=== PATIENT | male | born 1970 | race Caucasian/White ===

== ENCOUNTER → 2017-02-22 | Outpatient (CLI) | payer OTHER ==
[~2017-02-22] MED LIST: APIX5TAB PO; HYDR-3580 PO; METO1TAB9 PO; MULT1TAB46 PO; MULT400T PO; [UNRECOGNIZED DRUG - CODE] EACH NARE
[2017-02-22 11:34] LABS: BILIRUBIN, URINE NEG (NEG); BLOOD, URINE NEG (NEG); GLUCOSE,URINE NEG (NEG); KETONE, URINE NEG (NEG); NITRITE,URINE NEG (NEG); SQUAMOUS EPITHELIAL CELL URINE <1 /hpf (0-5); URINE COLOR YELLOW (YELLW/STRAW); URINE LEUKOCYTE ESTERASE NEG (NEG)
[2017-02-22 11:39] LABS: AUTOMATED NEUTROPHIL # 3.7 TH/MM3 (1.8-7.7); BASOPHIL % 0.7 % (0.0-2.0); EOSINOPHIL # 0.5 TH/MM3 (0-0.4); EOSINOPHIL % 7.6 % (0.0-4.0); HEMATOCRIT 43.4 % (39.0-51.0); HEMOGLOBIN 14.8 GM/DL (13.0-17.0); LYMPHOCYTE # 1.4 TH/MM3 (1.0-4.8); MEAN CELL VOLUME 86.8 FL (80.0-100.0); MEAN CORPUSCULAR HEMOGLOBIN 29.7 PG (27.0-34.0); MEAN CORPUSCULAR HGB CONC 34.2 % (32.0-36.0); MEAN PLATELET VOLUME 9.6 FL (7.0-11.0); MONO % 8.6 % (0.0-8.0); MONOCYTE # 0.5 TH/MM3 (0-0.9); NEUT % 60.1 % (16.0-70.0); PLATELET COUNT 155 TH/MM3 (150-450); RED CELL DISTRIBUTION WIDTH 13.5 % (11.6-17.2); WHITE BLOOD COUNT 6.2 TH/MM3 (4.0-11.0)
--- NOTE | 2017-02-22 21:04 | EKG ---
Date Performed: 02/22/2017 Time Performed: 10:41:31 PTAGE: 46 years EKG: SINUS BRADYCARDIA INCOMPLETE RIGHT BUNDLE BRANCH BLOCK BORDERLINE ECG NO PREVIOUS TRACING DOCTOR: Patsy Woody Interpretating Date/Time 02/22/2017 21:03:34
== END ==
LOC: CPRE 09:54
PROVIDERS: ATTEND Orthopaedic Surgery Orthopaedic Surgery of the Spine
DX: Z01.810 Encounter for preprocedural cardiovascular examination (principal); Z01.812 Encounter for preprocedural laboratory examination; M50.320 Other cervical disc degeneration, mid-cervical region, unspecified level; M50.33 Other cervical disc degeneration, cervicothoracic region; R94.31 Abnormal electrocardiogram [ECG] [EKG]
CPT/HCPCS: 36415; 81001; 85025; 93005

== ENCOUNTER 2017-03-02 05:42 | Inpatient (IN) | payer OTHER ==
[~2017-03-02] VITALS: Ht 170.2 cm; Wt 88.0 kg
[~2017-03-02 05:42] MED LIST changes: -HYDR-3580 PO; -METO1TAB9 PO; +METO50TA11 PO
[2017-03-02] MEDS ORDERED: ceFAZolin 2 GM PREMIX 50 ML IV SCH (06:30)
[2017-03-02] MEDS ORDERED: SODIUM CHLORID 0.9% 500 ML IV PRN (06:30)
[2017-03-02] MEDS ORDERED: LACTATED RINGER'S 1000 ML IV PRN (06:30)
[2017-03-02] MEDS ORDERED: POVIDONE IODINE 5% (ANTISEPSIS KIT) 4 APPLICATIONS EACH NARE PRN (06:30)
[2017-03-02] MEDS ORDERED: POVIDONE IODINE 7.5% SCRUB 118 ML BOTTLE TOPICAL SCH (06:30)
[2017-03-02] MEDS ORDERED: INSULIN HUMAN REGULAR 1,000 UNITS/10 ML VIAL SQ PRN (06:30)
[2017-03-02] MEDS ORDERED: VANCOMYCIN 1000 MG/NS 250 ML (for <70 kg) IV SCH ×2 (06:30)
[2017-03-02] MEDS ORDERED: CHLORHEXIDINE GLUCONATE 2 % 1 PACK (2 CLOTHS) TOPICAL PRN (06:30)
[2017-03-02] MEDS ORDERED: METOPROLOL TARTRATE 25 MG TAB PO PRN (06:30)
[2017-03-02] MEDS ORDERED: BUPIVACAINE/EPINEPHRINE 0.5% 50 ML VIAL ONE (07:29)
[2017-03-02] MEDS ORDERED: GENTAMICIN SULFATE 80 MG/2 ML VIAL ONE (07:29)
[2017-03-02] MEDS ORDERED: ACETAMINOPHEN 1000 MG/100 ML 100 ML IV ONE (07:34)
[2017-03-02] MEDS ORDERED: PROPOFOL 500 MG/50 ML INJ 0 ML ONE (07:45)
[2017-03-02] MEDS ORDERED: PROPOFOL 500 MG/50 ML INJ 50 ML ONE ×3 (10:07→11:19)
[2017-03-02] MEDS ORDERED: PROPOFOL 200 MG/20 ML AMP ONE (10:36)
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
[2017-03-02] MEDS: LACTATED RINGER'S 1000 ML INJ 1,000 ML IV SCH ×2 (10:50→17:31)
[2017-03-02] MEDS ORDERED: HYDR-3580 PO (10:55)
[2017-03-02] MEDS ORDERED: SODIUM CHLORIDE 0.9% FLUSH 5 ML FLUSH IVF PRN (11:00)
[2017-03-02] MEDS ORDERED: MORPHINE SULFATE 4 MG/ML INJ IV PUSH PRN (11:00)
[2017-03-02] MEDS ORDERED: OXYMETAZOLINE HCL 0.05% 15 ML NASAL SPRAY EACH NARE PRN (11:00)
[2017-03-02] MEDS ORDERED: ONDANSETRON HCL 4 MG/2 ML VIAL IV PUSH PRN (11:00)
[2017-03-02] MEDS ORDERED: ACETAMINOPHEN/HYDROcodone 325 MG/7.5 MG TAB PO PRN (11:00)
[2017-03-02] MEDS ORDERED: BISACODYL 10 MG SUPP RECTAL PRN (12:00)
[2017-03-02] MEDS ORDERED: Post-op Orders (for Pharmacy) MISC XX ONE (12:15)
[2017-03-02] MEDS ORDERED: DO NOT ADM ANY ANTICOAGULANT DRUGS PRN (12:16)
[2017-03-02] MEDS ORDERED: *morphine SULFATE 8 MG/ML PERIprocedure ONLY ONE (12:46)
--- NOTE | 2017-03-02 13:14 | MP ---
cc: IZABEL SOLIS MD, ALBERT W. M.D. BOGDANOWICZ, BRIAN T. MD DATE OF SURGERY 03/02/2017 PREOPERATIVE DIAGNOSES 1. C5-6 herniated nucleus pulposus, osteophyte disk complex. 2. Cervical spine degenerative disc disease, osteoarthritis. 3. Right-sided cervical radiculitis with right upper extremity weakness. POSTOPERATIVE DIAGNOSES 1. C5-6 herniated nucleus pulposus, osteophyte disk complex. 2. Cervical spine degenerative disc disease, osteoarthritis. 3. Right-sided cervical radiculitis with right upper extremity weakness. PROCEDURE C5-6 anterior interbody fusion; C5-6 SpineNet ACC anterior cervical cage; C5-6 SpineNet Rauscher anterior spinal instrumentation. SURGEON Key Mayo MD PROMOTIONS INTERN Dayna Doll PA-C COMPLICATIONS None. ANESTHESIA General. DRAINS None. SPECIMEN None. CONDITION Stable. PLAN OF ACTIVITY As per orders. PROCEDURE Dr. Varun Mayo and myself were co-surgeons today. Dr. Varun Mayo performed the neurosurgical decompression portion of the procedure. Under the operating microscope he performed C5-6 anterior cervical discectomy, anterior decompression with foraminotomy, also right anterior iliac crest bone grafting. I was not present for his portion of the procedure. I performed the orthopedic spinal fusion and stabilization portion of the procedure which is well described in my operative note. My nurse assistant, Dayna Doll PA-C, was present for my portion of the surgical case. She was medically necessary for the entire case because of the complexity of the case and to facilitate the performance of the procedure. The SHUFFLE BOARD OPERATOR at the back table was not of the skill-set for this case to manipulate the instruments, e.g., the multiple different types of soft tissue retractors, trial implants and permanent implants. The patient was brought into the operating room and had satisfactory general endotracheal anesthesia by the Department of Anesthesia. Dr. Varun Mayo performed a left anterior exposure and he performed the C5-6 anterior cervical discectomy using the operating microscope and anterior decompression and also right anterior iliac crest bone grafting. I was not present for his portion of the procedure. This is well described in his operative note. The endplates at C5-6 were prepared for fusion. The hyaline cartilage endplate was removed with multiple angled curettes and burs. A 6, 10 x 12 SpineNet ACC cage was placed in the interspace. The anterior iliac crest bone graft was used under fluoroscopic guidance for interbody fusion. Anterior osteophytes were removed using multiple different types of rongeurs and the barrel bur. A 23-mm length SpineNet Rauscher plate was contoured to appropriate dimensions for the appropriate cervical lordosis. Two tack pins were used to fixate the plate at the appropriate level; this was done under fluoroscopic guidance at the AP and lateral level. Two screws were used in the vertebral body of C5 and C6. Each of the screws were 14-mm length, 4.0 mm in diameter, fixed angle screws. Each of the screws were drilled. The screws wee inserted. Each screw was appropriately locked to the plate. The tack pins were removed. Intraoperative fluoroscopy in the AP and lateral planes confirmed satisfactory position of the bone graft at C5-6 and satisfactory position of the SpineNet ACC cage at C5-6 and satisfactory position of the anterior spinal instrumentation at C5-6. The wound was irrigated with copious amounts of sterile saline antibiotic solution. The wound itself was dry. The wound was closed in routine layers. This was done with multiple 3-0 Vicryl sutures. The skin was approximated with running subcuticular 4-0 Vicryl, Dermabond placed over the incision and sterile dressing applied, the patient placed in [place] cervical orthosis. The patient tolerated the procedure well and arrived in the recovery room in stable and satisfactory condition. MD FARHEEN Rahman/SSB /11:48 AM /12:57 PM
--- NOTE | 2017-03-02 13:14 | MP ---
cc: IZABEL SOLIS MD, ALBERT W. M.D. BOGDANOWICZ, BRIAN T. MD DATE OF SURGERY 03/02/2017 PREOPERATIVE DIAGNOSES 1. C5-6 herniated nucleus pulposus, osteophyte disk complex. 2. Cervical spine degenerative disc disease, osteoarthritis. 3. Right-sided cervical radiculitis with right upper extremity weakness. POSTOPERATIVE DIAGNOSES 1. C5-6 herniated nucleus pulposus, osteophyte disk complex. 2. Cervical spine degenerative disc disease, osteoarthritis. 3. Right-sided cervical radiculitis with right upper extremity weakness. PROCEDURE C5-6 anterior interbody fusion; C5-6 SpineNet ACC anterior cervical cage; C5-6 SpineNet Rauscher anterior spinal instrumentation. SURGEON Key Mayo MD SALES ASSOCIATE KEY HOLDER Dayna Doll PA-C COMPLICATIONS None. ANESTHESIA General. DRAINS None. SPECIMEN None. CONDITION Stable. PLAN OF ACTIVITY As per orders. PROCEDURE Dr. Varun Mayo and myself were co-surgeons today. Dr. Varun Mayo performed the neurosurgical decompression portion of the procedure. Under the operating microscope he performed C5-6 anterior cervical discectomy, anterior decompression with foraminotomy, also right anterior iliac crest bone grafting. I was not present for his portion of the procedure. I performed the orthopedic spinal fusion and stabilization portion of the procedure which is well described in my operative note. My title assistant, Dayna Doll PA-C, was present for my portion of the surgical case. She was medically necessary for the entire case because of the complexity of the case and to facilitate the performance of the procedure. The OUTREACH EDUCATOR at the back table was not of the skill-set for this case to manipulate the instruments, e.g., the multiple different types of soft tissue retractors, trial implants and permanent implants. The patient was brought into the operating room and had satisfactory general endotracheal anesthesia by the Department of Anesthesia. Dr. Varun Mayo performed a left anterior exposure and he performed the C5-6 anterior cervical discectomy using the operating microscope and anterior decompression and also right anterior iliac crest bone grafting. I was not present for his portion of the procedure. This is well described in his operative note. The endplates at C5-6 were prepared for fusion. The hyaline cartilage endplate was removed with multiple angled curettes and burs. A 6, 10 x 12 SpineNet ACC cage was placed in the interspace. The anterior iliac crest bone graft was used under fluoroscopic guidance for interbody fusion. Anterior osteophytes were removed using multiple different types of rongeurs and the barrel bur. A 23-mm length SpineNet Rauscher plate was contoured to appropriate dimensions for the appropriate cervical lordosis. Two tack pins were used to fixate the plate at the appropriate level; this was done under fluoroscopic guidance at the AP and lateral level. Two screws were used in the vertebral body of C5 and C6. Each of the screws were 14-mm length, 4.0 mm in diameter, fixed angle screws. Each of the screws were drilled. The screws wee inserted. Each screw was appropriately locked to the plate. The tack pins were removed. Intraoperative fluoroscopy in the AP and lateral planes confirmed satisfactory position of the bone graft at C5-6 and satisfactory position of the SpineNet ACC cage at C5-6 and satisfactory position of the anterior spinal instrumentation at C5-6. The wound was irrigated with copious amounts of sterile saline antibiotic solution. The wound itself was dry. The wound was closed in routine layers. This was done with multiple 3-0 Vicryl sutures. The skin was approximated with running subcuticular 4-0 Vicryl, Dermabond placed over the incision and sterile dressing applied, the patient placed in [place] cervical orthosis. The patient tolerated the procedure well and arrived in the recovery room in stable and satisfactory condition. MD FARHEEN Rahman/SSB /11:48 AM /12:57 PM
--- NOTE | 2017-03-02 13:14 | MP ---
cc: IZABEL SOLIS MD, ALBERT W. M.D. BOGDANOWICZ, BRIAN T. MD DATE OF SURGERY 03/02/2017 PREOPERATIVE DIAGNOSES 1. C5-6 herniated nucleus pulposus, osteophyte disk complex. 2. Cervical spine degenerative disc disease, osteoarthritis. 3. Right-sided cervical radiculitis with right upper extremity weakness. POSTOPERATIVE DIAGNOSES 1. C5-6 herniated nucleus pulposus, osteophyte disk complex. 2. Cervical spine degenerative disc disease, osteoarthritis. 3. Right-sided cervical radiculitis with right upper extremity weakness. PROCEDURE C5-6 anterior interbody fusion; C5-6 SpineNet ACC anterior cervical cage; C5-6 SpineNet Rauscher anterior spinal instrumentation. SURGEON Key Mayo MD PROJECT ASSISTANT Dayna Doll PA-C COMPLICATIONS None. ANESTHESIA General. DRAINS None. SPECIMEN None. CONDITION Stable. PLAN OF ACTIVITY As per orders. PROCEDURE Dr. Varun Mayo and myself were co-surgeons today. Dr. Varun Mayo performed the neurosurgical decompression portion of the procedure. Under the operating microscope he performed C5-6 anterior cervical discectomy, anterior decompression with foraminotomy, also right anterior iliac crest bone grafting. I was not present for his portion of the procedure. I performed the orthopedic spinal fusion and stabilization portion of the procedure which is well described in my operative note. My supply assistant, Dayna Doll PA-C, was present for my portion of the surgical case. She was medically necessary for the entire case because of the complexity of the case and to facilitate the performance of the procedure. The FIELD REPRESENTATIVE/HEALTH EDUCATION at the back table was not of the skill-set for this case to manipulate the instruments, e.g., the multiple different types of soft tissue retractors, trial implants and permanent implants. The patient was brought into the operating room and had satisfactory general endotracheal anesthesia by the Department of Anesthesia. Dr. Varun Mayo performed a left anterior exposure and he performed the C5-6 anterior cervical discectomy using the operating microscope and anterior decompression and also right anterior iliac crest bone grafting. I was not present for his portion of the procedure. This is well described in his operative note. The endplates at C5-6 were prepared for fusion. The hyaline cartilage endplate was removed with multiple angled curettes and burs. A 6, 10 x 12 SpineNet ACC cage was placed in the interspace. The anterior iliac crest bone graft was used under fluoroscopic guidance for interbody fusion. Anterior osteophytes were removed using multiple different types of rongeurs and the barrel bur. A 23-mm length SpineNet Rauscher plate was contoured to appropriate dimensions for the appropriate cervical lordosis. Two tack pins were used to fixate the plate at the appropriate level; this was done under fluoroscopic guidance at the AP and lateral level. Two screws were used in the vertebral body of C5 and C6. Each of the screws were 14-mm length, 4.0 mm in diameter, fixed angle screws. Each of the screws were drilled. The screws wee inserted. Each screw was appropriately locked to the plate. The tack pins were removed. Intraoperative fluoroscopy in the AP and lateral planes confirmed satisfactory position of the bone graft at C5-6 and satisfactory position of the SpineNet ACC cage at C5-6 and satisfactory position of the anterior spinal instrumentation at C5-6. The wound was irrigated with copious amounts of sterile saline antibiotic solution. The wound itself was dry. The wound was closed in routine layers. This was done with multiple 3-0 Vicryl sutures. The skin was approximated with running subcuticular 4-0 Vicryl, Dermabond placed over the incision and sterile dressing applied, the patient placed in [place] cervical orthosis. The patient tolerated the procedure well and arrived in the recovery room in stable and satisfactory condition. MD FARHEEN Rahman/SSB /11:48 AM /12:57 PM
[2017-03-02 13:30] VITALS: BP 109/62; PULSE 59; RESP 18; TEMP 96.6; O2SAT 95
--- NOTE | 2017-03-02 13:57 | RADRPT ---
EXAM DATE/TIME: 03/02/2017 11:20 [facility] COMPARISON: No previous studies available for comparison. INDICATIONS : C5-6 Anterior cervical disc fusion. MEDICAL HISTORY : Hypertension. A-fib. SURGICAL HISTORY : None. ENCOUNTER: Initial ACUITY: 1 day PAIN SCORE: Non-responsive. LOCATION: Cervical spine. FINDINGS: There is anterior cervical fusion with a plate anteriorly from C5-C6. The vertebral bodies are normal in alignment on the lateral view. CONCLUSION: 1. Postsurgical changes as above. Yuriy Enciso MD on March 02, 2017 at 13:54 Board Certified Radiologist. This report was verified electronically.
[2017-03-02] MEDS: ACETAMINOPHEN/HYDROcodone 325 MG/7.5 MG TAB PO PRN ×2 (14:29→21:27)
[2017-03-02 16:00] VITALS: BP 104/67; PULSE 68; RESP 18; TEMP 97.2; O2SAT 94
[2017-03-02 17:30] VITALS: O2SAT 97
[2017-03-02] MEDS: DRONEDARONE 400 MG TAB PO SCH (17:30)
[2017-03-02 19:00] VITALS: BP 134/72; PULSE 113; RESP 17; TEMP 96.8; O2SAT 93
[2017-03-02] MEDS: SODIUM CHLORIDE 0.9% FLUSH 5 ML FLUSH IVF SCH (21:30)
--- NOTE | 2017-03-02 22:29 | HHI.DCPOC ---
Discharge Care Plan Diagnosis: (1) Cervical spinal stenosis Your Health Problems Are: Incision/Drains Swelling Goals to Promote Your Health * To prevent worsening of your condition and complications * To maintain your health at the optimal level Directions to Meet Your Goals Take your medications as prescribed Follow your dietary instruction Follow activity as directed Keep your appointments as scheduled Take your immunizations and boosters as scheduled If your symptoms worsen call your PCP, if no PCP go to Urgent Care Center or Emergency Room Smoking is Dangerous to Your Health. Avoid second hand smoke Call the 24-hour hour crisis hotline for domestic abuse at Maddi Moreno Mar 02, 2017 22:29
--- NOTE | 2017-03-02 22:29 | HHI.DCPOC ---
Discharge Care Plan Diagnosis: (1) Cervical spinal stenosis Your Health Problems Are: Incision/Drains Swelling Goals to Promote Your Health * To prevent worsening of your condition and complications * To maintain your health at the optimal level Directions to Meet Your Goals Take your medications as prescribed Follow your dietary instruction Follow activity as directed Keep your appointments as scheduled Take your immunizations and boosters as scheduled If your symptoms worsen call your PCP, if no PCP go to Urgent Care Center or Emergency Room Smoking is Dangerous to Your Health. Avoid second hand smoke Call the 24-hour hour crisis hotline for domestic abuse at Maddi Moreno Mar 02, 2017 22:29
--- NOTE | 2017-03-02 22:29 | HHI.DCPOC ---
Discharge Care Plan Diagnosis: (1) Cervical spinal stenosis Your Health Problems Are: Incision/Drains Swelling Goals to Promote Your Health * To prevent worsening of your condition and complications * To maintain your health at the optimal level Directions to Meet Your Goals Take your medications as prescribed Follow your dietary instruction Follow activity as directed Keep your appointments as scheduled Take your immunizations and boosters as scheduled If your symptoms worsen call your PCP, if no PCP go to Urgent Care Center or Emergency Room Smoking is Dangerous to Your Health. Avoid second hand smoke Call the 24-hour hour crisis hotline for domestic abuse at Maddi Mroeno Mar 02, 2017 22:29
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
[2017-03-02 23:59] VITALS: BP 114/69; PULSE 83; RESP 15; TEMP 97.3; O2SAT 97
[2017-03-03] MEDS: LACTATED RINGER'S 1000 ML INJ 1,000 ML IV SCH (01:03)
[2017-03-03] MEDS: ACETAMINOPHEN/HYDROcodone 325 MG/7.5 MG TAB PO PRN ×2 (03:37→08:47)
--- NOTE | 2017-03-03 07:59 | PD.ORT.PN ---
Subjective Subjective Remarks He is states he is 'ok'. He cannot tell if his right arm is any better but he thinks he has less burning. His throat is a little sore but he can swallow without difficulty. No new complaints. No new chest pain or SOB. Objective Vitals Vital Signs Date Time Temp Pulse Resp B/P (MAP) Pulse Ox O2 Delivery O2 Flow Rate FiO2 03/03/17 04:24 17 03/03/17 01:15 Room Air 03/02/17 23:59 97.3 83 15 114/69 (84) 97 03/02/17 19:00 96.8 113 17 134/72 (92) 93 03/02/17 17:30 97 21 03/02/17 16:00 97.2 68 18 104/67 (79) 94 03/02/17 13:30 96.6 59 18 109/62 (78) 95 03/02/17 13:15 61 20 107/56 (73) 94 Room Air 03/02/17 13:00 60 20 105/56 (72) 94 Room Air 03/02/17 12:45 71 20 147/62 (90) 94 03/02/17 12:30 61 20 108/62 (77) 100 Nasal Cannula 4 03/02/17 12:15 97.8 58 20 108/58 (75) 100 Nasal Cannula 4 I/O 03/02/17 03/02/17 03/02/17 03/03/17 03/03/17 03/03/17 07:00 15:00 23:00 07:00 15:00 23:00 Intake Total 1000 ml 842 ml 1218 ml Output Total 525 ml 900 ml Balance 475 ml 842 ml 318 ml Intake Oral 480 ml 480 ml IV Total 362 ml 738 ml Other 1000 ml Output Urine Total 500 ml 900 ml Estimated Blood Loss 25 ml # Voids 3 2 # Bowel Movements 0 0 0 Procedures Anterior cervical decompression and fusion C56, bone graft. Objective Remarks Sitting up in bed NAD VSS C/S Collar in place, anterior incision dressed and dry, no drainage, no swelling +motor biceps bilat, +sens, +nvi Assessment & Plan Ortho Post Op Day #: 1 Problem List: (1) Cervical spinal stenosis ICD Codes: M48.02 - Spinal stenosis, cervical region Assessment and Plan pod#1 s/p ACDF C56 Ortho stable. Ok to d/c home today. PO pain meds written. Continue cervical collar part time receptionist for 2-3 weeks. Dry dressing changes beginning tomorrow. Ok to shower at that time. Avoid strenuous activity. No driving while in collar. F/U in 2 weeks as scheduled. Maddi Moreno Mar 03, 2017 07:59
[2017-03-03 08:00] VITALS: BP 111/70; PULSE 62; RESP 18; TEMP 96.9; O2SAT 94
[2017-03-03] MEDS: DRONEDARONE 400 MG TAB PO SCH (08:46)
[2017-03-03] MEDS ORDERED: MULTIVITAMINS/MINERALS THERAPEUTIC TAB PO SCH (09:00)
[2017-03-03] MEDS ORDERED: METOPROLOL SUCCINATE 50 MG EXTENDED RELEASE TAB PO SCH (09:00)
[2017-03-03] MEDS ORDERED: DOCUSATE SODIUM 100 MG CAP PO SCH (09:00)
[2017-03-03] MEDS: SODIUM CHLORIDE 0.9% FLUSH 5 ML FLUSH IVF SCH (09:00)
[2017-03-03 09:44] VITALS: O2SAT 97
== END 2017-03-03 10:14 | disposition home or self-care (01) | DRG 473 ==
LOC: HSDC 05:42 → EDUNIT# 07:30 → HSDI 10:52 → N06A 13:31
PROVIDERS: ADMIT Orthopaedic Surgery Orthopaedic Surgery of the Spine; ATTEND Orthopaedic Surgery Orthopaedic Surgery of the Spine
PROC: 0QB33ZZ Excision of Left Pelvic Bone, Percutaneous Approach (ICD-10-PCS; 2017-03-02)
PROC: 0RT30ZZ Resection of Cervical Vertebral Disc, Open Approach (ICD-10-PCS; 2017-03-02)
PROC: 0RG10A0 Fusion of Cervical Vertebral Joint with Interbody Fusion Device, Anterior Approach, Anterior Column, Open Approach (ICD-10-PCS; principal; 2017-03-02 08:30)
DX: M48.02 Spinal stenosis, cervical region (principal); M25.78 Osteophyte, vertebrae; M50.122 Cervical disc disorder at C5-C6 level with radiculopathy
CPT/HCPCS: 72040; 76000; 94150; J0131; J0690; J1580; J2270; J3370; J7050; J7120; L0150